=== PATIENT | male | born 1965 | race Caucasian/White ===

== ENCOUNTER 2017-01-26 10:12 | Emergency (ER) | payer OTHER, BC ==
[2017-01-26 10:25] VITALS: BP 139/106; PULSE 81; TEMP 98; BMI 34.0
--- NOTE | 2017-01-26 10:45 | PDOC ---
History of Present Illness - General Chief Complaint: Injury Stated Complaint: LEFT FOOT,ANKLE, LEG PAIN Time Seen by Provider: 01/26/17 10:18 - History of Present Illness Initial Comments: 01/26/17 10:47 Chief complaint: Left thigh pain History of present illness: Patient states that he was climbing into his truck, slipped and fell, injuring his left leg. He has pain in the posterior calf, worse with weightbearing and walking, he also has some numbness and tingling in the lateral foot. He denies injuring his back and has no back pain. Review of systems: Denies pain or injury to the head neck chest abdomen spine and pelvis or other extremities. Specifically denies striking his head, or low back pain. Past medical history: Healthy male other than transient elevations in blood pressure, under the care of a physician, monitoring and observation. Social/family history reviewed and noncontributory Physical exam: Alert oriented 3 well-developed well-nourished no acute distress cooperative Afebrile, vital signs normal except for mildly elevated blood pressure Head atraumatic. PERRLA, fundi benign. ENT clear Neck supple without bruit mass or nodes No point tenderness or deformity of the cervical spine Lungs clear full breath sounds throughout bilaterally no chest wall or rib cage tenderness or deformity CV regular without murmur rub or gallop Abdomen soft nontender without mass or organomegaly. No CVAT Neurological C2 to 12 intact. Strength full and symmetric. There is questionable decreased sensation in the L5-S1 distribution, left foot. Gait stable and unimpaired Extremities no CCE A reveals full range of motion without pain of the hip knee and ankle. No visible or palpable deformities. Pulses full. Sensory deficit minor as described above. There is tenderness over the medial hamstring tendon of the left thigh, without swelling or hematoma palpable. No skin changes. No bruising or ecchymoses. Superficial abrasion Skin clear, no rash, adequate turgor and what mucous membranes Impression: Hamstring injury, questionable compression of sciatic nerve due to injury Plan: Rest, ice, anti-inflammatory, and orthopedic follow-up. It was recommended that the patient be nonweightbearing, with rest ice and medication as directed. However, he refuses to stay home from work and insists on returning to his job tomorrow. A note was furnished allowing him to return to work provided his symptoms are resolved. Otherwise, further rest and medical reevaluation by an orthopedist before returning to work was recommended Past History - Past Medical History Allergies/Adverse Reactions: Allergies Allergy/AdvReac Type Severity Reaction Status Date / Time No Known Drug Allergies Allergy Verified 01/26/17 10:13 Home Medications: Ambulatory Orders NK [No Known Home Medication] 01/26/17 Anemia: No Asthma: No Cancer: No Cardiac Disorders: No CVA: No COPD: No CHF: No Dementia: No Diabetes: No GI Disorders: No Disorders: No HTN: Yes (NON COMPLIANT WITH MEDS) Hypercholesterolemia: No Liver Disease: No Seizures: No Thyroid Disease: No - Surgical History Abdominal Surgery: Yes (Umbilical Hernia Repair) Appendectomy: No Cardiac Surgery: No Cholecystectomy: Yes Lung Surgery: No Neurologic Surgery: No Orthopedic Surgery: Yes (Bilateral Knee Arthroscopy) - Immunization History Td Vaccination: No Immunization Up to Date: (2010) - Psycho/Social/Smoking Cessation Hx Anxiety: No Suicidal Ideation: No Smoking Status: Yes Smoking History: Never smoked Have you smoked in the past 12 months: No Number of Cigarettes Smoked Daily: 20 If you are a former smoker, when did you quit?: seven months Information on smoking cessation initiated: No 'Breaking Loose' booklet given: 05/23/13 Hx Alcohol Use: No Drug/Substance Use Hx: No Substance Use Type: None Hx Substance Use Treatment: No *Physical Exam - Vital Signs Last Vital Signs Temp Pulse Resp BP Pulse Ox 98 F 81 20 139/106 98 01/26/17 10:13 01/26/17 10:13 01/26/17 10:13 01/26/17 10:13 01/26/17 10:13 *DC/Admit/Observation/Transfer Diagnosis at time of Disposition: Strain of hamstring muscle Qualifiers: Encounter type: initial encounter Laterality: left Qualified Code(s): S76.312A - Strain of muscle, fascia and tendon of the posterior muscle group at thigh level, left thigh, initial encounter - Discharge Dispostion Disposition: HOME Condition at time of disposition: Stable Admit: No - Referrals Referrals: Maykel Sierra MD [Staff Physician] - 3 days - Patient Instructions Printed Discharge Instructions: DI for Muscle Strain Additional Instructions: Rest, nonweightbearing, ice, ibuprofen 3 times daily. see specialist if symptoms persist 3- 5 days. - Post Discharge Activity Work/School Note: Back to Work
== END 2017-01-26 11:09 | disposition home or self-care (01) ==
LOC: FER 10:12
DX: S76.312A Strain of muscle, fascia and tendon of the posterior muscle group at thigh level, left thigh, initial encounter (principal); V68.4XXA Person boarding or alighting a heavy transport vehicle injured in noncollision transport accident, initial encounter; Y92.488 Other paved roadways as the place of occurrence of the external cause; Y93.89 Activity, other specified; Y99.8 Other external cause status
CPT/HCPCS: 99283-25

== ENCOUNTER 2018-08-31 18:49 | Emergency (ER) | payer BC, OTHER ==
[2018-08-31 19:09] VITALS: BP 133/99; PULSE 83; TEMP 98.3; BMI 29.5
--- NOTE | 2018-08-31 19:24 | PDOC ---
History of Present Illness - General Chief Complaint: Laceration Stated Complaint: NECK BLEEDING History Source: Patient Exam Limitations: No Limitations - History of Present Illness Initial Comments: 08/31/18 19:22 53 yr male with laceration to the right jaw line at home on sharp piece of metal at home. tetanus is UTD Past History - Past Medical History Allergies/Adverse Reactions: Allergies Allergy/AdvReac Type Severity Reaction Status Date / Time No Known Drug Allergies Allergy Verified 08/31/18 18:59 Home Medications: Ambulatory Orders NK [No Known Home Medication] 01/26/17 Atorvastatin Ca [Lipitor] 20 mg PO HS 08/31/18 Anemia: No Asthma: No Cancer: No Cardiac Disorders: No CVA: No COPD: No CHF: No Dementia: No Diabetes: No GI Disorders: No Disorders: No HTN: Yes (NON COMPLIANT WITH MEDS) Hypercholesterolemia: No Liver Disease: No Seizures: No Thyroid Disease: No - Surgical History Abdominal Surgery: Yes (Umbilical Hernia Repair) Appendectomy: No Cardiac Surgery: No Cholecystectomy: Yes Lung Surgery: No Neurologic Surgery: No Orthopedic Surgery: Yes (Bilateral Knee Arthroscopy) - Immunization History Td Vaccination: No Immunization Up to Date: (2010) - Suicide/Smoking/Psychosocial Hx Smoking Status: Yes Smoking History: Never smoked Have you smoked in the past 12 months: No Number of Cigarettes Smoked Daily: 20 If you are a former smoker, when did you quit?: seven months Information on smoking cessation initiated: No 'Breaking Loose' booklet given: 05/23/13 Hx Alcohol Use: No Drug/Substance Use Hx: No Substance Use Type: None Hx Substance Use Treatment: No *Physical Exam - Vital Signs Last Vital Signs Temp Pulse Resp BP Pulse Ox 98.3 F 83 17 133/99 97 08/31/18 18:59 08/31/18 18:59 08/31/18 18:59 08/31/18 18:59 08/31/18 18:59 - Physical Exam General Appearance: Yes: Nourished, Appropriately Dressed HEENT: positive: EOMI, EVANGELINA Integumentary: positive: Normal Color, Dry, Warm, Other (right side jaw with 3cm linear laceration no active bleeding, superficial ) Neurologic: positive: test cell technician II-XII NML intact, Fully Oriented, Alert, Normal Mood/ Affect, Normal Response, Motor Strength 5/5 Procedures - Laceration/Wound Repair Right Face Wound Length: 2.6 to 5.0 cm Wound Explored: clean Wound's Depth, Shape: superficial, linear Irrigated w/ Saline: Yes Betadine Prep: Yes Wound Repaired With: Steri-strips, Dermabond Medical Decision Making - Medical Decision Making 08/31/18 19:24 cc: laceration on metal to the right side face/jaw area wound cleaned no active bleeding closed with dermabond and steri strip pt agrees with the closure plan all questions asked and answered at dc *DC/Admit/Observation/Transfer Diagnosis at time of Disposition: Facial laceration Qualifiers: Encounter type: initial encounter Qualified Code(s): S01.81XA - Laceration without foreign body of other part of head, initial encounter - Discharge Dispostion Disposition: HOME Condition at time of disposition: Good - Referrals - Patient Instructions Printed Discharge Instructions: DI for Laceration Repair With Dermabond Additional Instructions: keep dry 24hrs briefly get wet in shower but the more you keep dry the better the glue and the tape will peel off on its own no creams no lotions to the area - Post Discharge Activity
== END 2018-08-31 19:41 | disposition home or self-care (01) ==
LOC: JERFT 18:49
PROC: 0HQ1XZZ Repair Face Skin, External Approach (ICD-10-PCS; principal; 2018-08-31)
DX: S01.81XA Laceration without foreign body of other part of head, initial encounter (principal); W26.8XXA Contact with other sharp object(s), not elsewhere classified, initial encounter; Y93.89 Activity, other specified; Y92.018 Other place in single-family (private) house as the place of occurrence of the external cause; Y99.8 Other external cause status
CPT/HCPCS: 99281-25

== ENCOUNTER 2022-05-10 00:49 | Emergency (ER) | payer BC ==
[2022-05-10 00:57] VITALS: BP 129/92; PULSE 99; RESP 18; TEMP 98.2; BMI 30.8
== END 2022-05-10 01:35 | disposition left against medical advice (07) ==
LOC: FER 00:49
DX: R07.89 Other chest pain (principal); M54.50 Low back pain, unspecified
CPT/HCPCS: 93005; 99284-25